=== PATIENT | female | born 1995 ===

== ENCOUNTER 2021-12-20 07:59 | Inpatient (IN) | payer BC ==
[2021-12-20] MEDS ORDERED: Misoprostol 25 MCG (1/4 of 100 MCG) Tab PO ONE (08:30)
[2021-12-20] MEDS ORDERED: Misoprostol 25 MCG (1/4 of 100 MCG) Tab VAG PRN (08:30)
[2021-12-20] MEDS ORDERED: Misoprostol 25 MCG (1/4 of 100 MCG) Tab ONE (11:49)
[2021-12-20] MEDS ORDERED: Lactated Ringers 1,000 ML IV SCH (17:00)
[2021-12-20] MEDS ORDERED: Oxytocin/0.9 % Sodium Chloride 30 UNIT/500 ML BAG IV ONE (17:00)
[2021-12-20] MEDS ORDERED: Oxytocin/0.9 % Sodium Chloride 30 UNIT/500 ML BAG ONE (17:08)
[2021-12-20] MEDS ORDERED: Terbutaline 1 MG/ML SDV SUBCUT PRN ×2 (19:01→19:46)
[2021-12-20] MEDS ORDERED: Lidocaine 1% 50 ML MDV INJECT PRN (19:46)
[2021-12-20] MEDS ORDERED: Butorphanol 1 MG/ML SDV IVPUSH PRN (19:46)
[2021-12-20] MEDS ORDERED: Sodium Chloride 0.9% 10 ML Syringe FLUSH PRN (19:46)
[2021-12-20] MEDS ORDERED: Sodium Chloride 0.9% 20 ML SDV IV PRN (19:46)
[2021-12-20] MEDS ORDERED: Misoprostol 200 MCG Tab PO PRN (19:46)
[2021-12-20] MEDS ORDERED: Methylergonovine 0.2 MG/1 ML Amp IM PRN (19:46)
[2021-12-20] MEDS ORDERED: Sodium Chloride 0.9% 2.5 ML Syringe FLUSH PRN (19:46)
[2021-12-20] MEDS ORDERED: Tranexamic Acid 1,000 MG in Sodium Chloride 0.9% 100 ML IV PRN (19:46)
[2021-12-20] MEDS ORDERED: Carboprost Tromethamine 250 MCG/1 ML Amp IM PRN (19:46)
[2021-12-20] MEDS ORDERED: Water For Irrigation,Sterile 1,000 ML Container IRR PRN (19:46)
[2021-12-20] MEDS ORDERED: Oxytocin/0.9 % Sodium Chloride 30 UNIT/500 ML BAG IV SCH ×2 (20:00)
[2021-12-20] MEDS ORDERED: Ropivacaine/PF 400 MG/200 ML PCA ONE (21:15)
[2021-12-20] MEDS ORDERED: Phenylephrine HCl In 0.9% NaCl 1 MG/10 ML Vial ONE (21:15)
[2021-12-20] MEDS ORDERED: ePHEDrine 50 MG/ML SDV IVPUSH PRN ×2 (21:25)
[2021-12-20] MEDS ORDERED: Ropivacaine HCl/PF 400 MG in Premix Bag 1 BAG EPIDUR SCH (21:30)
[2021-12-20] MEDS ORDERED: Phenylephrine HCl In 0.9% NaCl 1 MG/10 ML Vial IVPUSH SCH (21:30)
[2021-12-20] MEDS ORDERED: Benzocaine/Menthol 20%-0.5% Spray 78 GM Cannister TOP PRN (23:09)
[2021-12-20] MEDS ORDERED: Docusate Sodium 100 MG Cap PO PRN (23:09)
[2021-12-20] MEDS ORDERED: oxyCODONE 5 MG Tab PO PRN (23:09)
[2021-12-20] MEDS ORDERED: Lanolin 100% Cream 7 GM Tube TOP PRN (23:09)
[2021-12-20] MEDS ORDERED: Acetaminophen 500 MG Tab PO PRN (23:09)
[2021-12-20] MEDS ORDERED: Ibuprofen 400 MG Tab PO PRN (23:09)
[2021-12-20] MEDS ORDERED: Bisacodyl 10 MG Supp RECTAL PRN (23:09)
[2021-12-20] MEDS ORDERED: Witch Hazel Medicated Pads 40/Jar TOP PRN (23:09)
[2021-12-21] MEDS: Ibuprofen 800 MG Tab PO PRN ×2 (06:19→13:00)
[2021-12-21] MEDS: Acetaminophen 500 MG Tab PO PRN ×3 (06:19→17:07)
[2021-12-22] MEDS: Ibuprofen 800 MG Tab PO PRN ×2 (01:48→11:55)
[2021-12-22] MEDS: Acetaminophen 500 MG Tab PO PRN ×2 (01:48→11:54)
== END 2021-12-22 12:45 | disposition home or self-care (01) | DRG 560 ==
LOC: MW.OB 07:59 → OBSVTOIN 22:58 → MW.OB 12-21 02:00
PROVIDERS: ADMIT Obstetrics & Gynecology; ATTEND Obstetrics & Gynecology
PROC: 10E0XZZ Delivery of Products of Conception, External Approach (ICD-10-PCS; principal; 2021-12-20)
PROC: 10907ZC Drainage of Amniotic Fluid, Therapeutic from Products of Conception, Via Natural or Artificial Opening (ICD-10-PCS; 2021-12-20)
PROC: 3E0P7VZ Introduction of Hormone into Female Reproductive, Via Natural or Artificial Opening (ICD-10-PCS; 2021-12-20)
PROC: 3E033VJ Introduction of Other Hormone into Peripheral Vein, Percutaneous Approach (ICD-10-PCS; 2021-12-20)
PROC: 3E0R3BZ Introduction of Anesthetic Agent into Spinal Canal, Percutaneous Approach (ICD-10-PCS; 2021-12-20)
PROC: 00HU33Z Insertion of Infusion Device into Spinal Canal, Percutaneous Approach (ICD-10-PCS; 2021-12-20)
DX: O80 Encounter for full-term uncomplicated delivery (principal); Z3A.39 39 weeks gestation of pregnancy; Z37.0 Single live birth
CPT/HCPCS: 36415; 51702; 59025; 59409; 85014; 85018; A9270-GY; J2590; J7120